=== PATIENT | male | born 1955 | race Caucasian/White ===

== ENCOUNTER 2021-10-16 15:13 | Emergency (ER) | payer MEDICARE ==
[~2021-10-16] VITALS: Ht 182.9 cm; Wt 80.5 kg
[2021-10-16] MEDS ORDERED: PERTUSS(ACELL),DIPH,TET VAC/PF 0.5 ML SYRINGE IM. ONE (16:30)
[2021-10-16 17:51] VITALS: BP 149/83
[2021-10-16] MEDS ORDERED: CEPH-558 PO (18:13)
== END 2021-10-16 18:31 | disposition home or self-care (01) ==
LOC: EMS 15:13
DX: S61.431A Puncture wound without foreign body of right hand, initial encounter (principal); F17.210 Nicotine dependence, cigarettes, uncomplicated; W25.XXXA Contact with sharp glass, initial encounter; Y93.89 Activity, other specified; Y92.89 Other specified places as the place of occurrence of the external cause; Y99.8 Other external cause status
CPT/HCPCS: 90471; 90715; 99283

== ENCOUNTER 2024-01-24 19:48 | Emergency (ER) | payer MEDICARE ==
[~2024-01-24] VITALS: Ht 182.9 cm; Wt 76.4 kg
[~2024-01-24 19:48] MED LIST: CEPH-558 PO
[2024-01-24 19:56] VITALS: BP 118/82; PULSE 84; RESP 16; TEMP 98.1
[2024-01-24] MEDS ORDERED: DIPH25CA85 PO (22:30)
[2024-01-24] MEDS ORDERED: METH4TAB3 PO (22:30)
[2024-01-24] MEDS: FAMOTIDINE 20 MG TABLET PO ONE (23:14)
[2024-01-24] MEDS: DiphenhydrAMINE HCL 50 MG CAPSULE PO ONE (23:14)
[2024-01-24] MEDS: DEXAMETHASONE SOD PHOS 4 MG/ML 5 ML VIAL IM ONE (23:15)
== END 2024-01-24 23:57 | disposition home or self-care (01) ==
LOC: EMS 19:48
DX: T78.49XA Other allergy, initial encounter (principal); F17.210 Nicotine dependence, cigarettes, uncomplicated; X58.XXXA Exposure to other specified factors, initial encounter
CPT/HCPCS: 99283; 96372; J1100